=== PATIENT | female | born 1975 | race Caucasian/White ===

== ENCOUNTER 2017-09-26 16:20 | Emergency (ER) | payer MEDICAID, OTHER ==
--- NOTE | 2017-09-26 16:41 | EDM.PDOC ---
ED HPI GENERAL MEDICAL PROBLEM - General Chief Complaint: Chest Pain Stated Complaint: CHEST PAIN AND ARM PAIN Time Seen by Provider: 09/26/17 16:31 Source of Information: Reports: Patient, Family History Limitations: Reports: No Limitations - History of Present Illness INITIAL COMMENTS - FREE TEXT/NARRATIVE: 42 years old w f _smokes, drinks daily- came to the ed due to Left ant chest pain going to her shoulder. Pt has chronic bronchitis as well. Pain is worse when taking a deep breath. No N/V/D dizziness or diaphoresis. Pt has occ a running nose. No other acute medical issues. Denies drug use. BP 164/74 pulse 103 Temp 36.7 Pulse ox 97% on RA Onset Date: 09/26/17 Onset Time: 04:00 Duration: Hour(s):, Intermittent Location: Reports: Chest Quality: Reports: Ache, Burning, Dull Severity: Moderate Improves with: Reports: Rest Worsens with: Reports: Movement Context: Reports: Other (smokes, uses ETOH) Chest Pain Score (Numeric/FACES): 4 - Related Data Allergies Allergy/AdvReac Type Severity Reaction Status Date / Time amoxicillin Allergy Anaphylactic Verified 09/26/17 16:38 Shock clindamycin Allergy Swelling Verified 09/26/17 16:38 Home Meds: Home Meds Divalproex Sodium [Depakote ER] 1,000 mg PO DAILY 09/26/17 [History] hydrOXYzine Pamoate [Vistaril] 200 mg PO DAILY 09/26/17 [History] ED ROS GENERAL - Review of Systems Review Of Systems: See Below Constitutional: Reports: No Symptoms HEENT: Reports: No Symptoms Respiratory: Reports: Pleuritic Chest Pain Cardiovascular: Reports: No Symptoms Endocrine: Reports: No Symptoms GI/Abdominal: Reports: No Symptoms : Reports: No Symptoms Musculoskeletal: Reports: No Symptoms Skin: Reports: No Symptoms Neurological: Reports: No Symptoms Psychiatric: Reports: No Symptoms Hematologic/Lymphatic: Reports: No Symptoms Immunologic: Reports: No Symptoms ED EXAM, GENERAL - Physical Exam Exam: See Below Exam Limited By: No Limitations General Appearance: Alert, WD/WN, Mild Distress Eye Exam: Bilateral Eye: Normal Inspection Ears: Normal External Exam Ear Exam: Bilateral Ear: Auricle Normal Nose: Normal Inspection, No Blood, Nasal Drainage Throat/Mouth: Normal Inspection, Normal Lips, No Airway Compromise Head: Atraumatic, Normocephalic Neck: Normal Inspection, Supple, Non-Tender, Full Range of Motion Respiratory/Chest: No Respiratory Distress, Lungs Clear, Chest Non-Tender, Rhonchi Cardiovascular: Normal Peripheral Pulses, Regular Rate, Rhythm, No Edema, No Gallop Peripheral Pulses: 1+: Radial (L) GI/Abdominal: Normal Bowel Sounds (Female) Exam: Deferred Rectal (Female) Exam: Deferred Back Exam: Normal Inspection, Full Range of Motion Extremities: Normal Inspection, Normal Range of Motion, Non-Tender, No Pedal Edema Neurological: Alert, Oriented, CN II-XII Intact, Normal Cognition, Normal Gait, No Motor/Sensory Deficits Psychiatric: Normal Affect, Normal Mood Skin Exam: Warm, Dry, Intact, Normal Color, No Rash Lymphatic: No Adenopathy EKG INTERPRETATION EKG Date: 09/26/17 Time: 16:30 Rhythm: NSR Rate (Beats/Min): 9 [place]: Normal P-Wave: Present QRS: Normal ST-T: Normal QT: Normal Comparison: NA - No Prior EKG Course - Vital Signs Text/Narrative:: 42 years old w f _smokes, drinks daily- came to the ed due to Left ant chest pain going to her shoulder. Pt has chronic bronchitis as well. Pain is worse when taking a deep breath. No N/V/D dizziness or diaphoresis. Pt has occ a running nose. No other acute medical issues. Denies drug use. BP 164/74 pulse 103 Temp 36.7 Pulse ox 97% on RA PE: Pleuritic C/P, nasal congestion Labs: CBC, BMP, Troponis, Influenza test were neg Impression: Atypical chest pain Tx: Toradol Reexam: Improved Plan: D/C with instructions. Last Recorded V/S: Last Vital Signs Temp 37.2 C 09/26/17 16:31 Pulse 103 H 09/26/17 16:31 Resp 13 09/26/17 16:31 BP 164/74 H 09/26/17 16:31 Pulse Ox 98 09/26/17 16:31 - Orders/Labs/Meds Orders: Active Orders 24 hr Category Date Time Status EKG Documentation Completion [RC] ASDIRECTED Care 09/26/17 16:53 Active EKG Documentation Completion [RC] STAT Care 09/26/17 16:53 Active CXR [Chest 2V] [CR] Stat Exams 09/26/17 16:39 Taken EKG 12 Lead [EK] Routine Ther 09/26/17 16:30 Ordered Labs: Laboratory Tests 09/26/17 09/26/17 09/26/17 Range/Units 16:45 16:45 16:45 WBC 11.6 (4.5-12.0) X10-3/uL RBC 4.19 (3.23-5.20) x10(6)uL Hgb 13.4 (11.5-15.5) g/dL Hct 39.7 (30.0-51.3) % MCV 94.7 (80-96) fL MCH 32.0 (27.7-33.6) pg MCHC 33.8 (32.2-35.4) g/dL RDW 13.2 (11.5-15.5) % Plt Count 381 H (125-369) X10(3)uL MPV 7.8 (7.4-10.4) fL Neut % (Auto) 72.0 (46-82) % Lymph % (Auto) 22.2 (13-37) % [place] % (Auto) 3.5 L (4-12) % Eos % (Auto) 2 (1.0-5.0) % Baso % (Auto) 1 (0-2) % Neut # (Auto) 8.3 (1.6-8.3) # Lymph # (Auto) 2.6 (0.6-5.0) # [place] # (Auto) 0.4 (0.0-1.3) # Eos # (Auto) 0.2 (0.0-0.8) # Baso # (Auto) 0.1 (0.0-0.2) # PT 10.0 (8.7-11.1) INR 0.99 (0.89-1.13) Sodium 139 (135-145) mmol/L Potassium 3.9 (3.5-5.3) mmol/L Chloride 102 (100-110) mmol/L Carbon Dioxide 24 (21-32) mmol/L BUN 10 (7-18) mg/dL Creatinine 0.7 (0.55-1.02) mg/dL Est Cr Clr Drug Dosing 84.84 mL/min Estimated GFR (MDRD) > 60 (>60) BUN/Creatinine Ratio 14.3 (9-20) Glucose 97 (80-116) mg/dL Calcium 8.9 (8.6-10.2) mg/dL Troponin I (<0.017-0.056) ng/mL 09/26/17 Range/Units 16:45 WBC (4.5-12.0) X10-3/uL RBC (3.23-5.20) x10(6)uL Hgb (11.5-15.5) g/dL Hct (30.0-51.3) % MCV (80-96) fL MCH (27.7-33.6) pg MCHC (32.2-35.4) g/dL RDW (11.5-15.5) % Plt Count (125-369) X10(3)uL MPV (7.4-10.4) fL Neut % (Auto) (46-82) % Lymph % (Auto) (13-37) % [place] % (Auto) (4-12) % Eos % (Auto) (1.0-5.0) % Baso % (Auto) (0-2) % Neut # (Auto) (1.6-8.3) # Lymph # (Auto) (0.6-5.0) # [place] # (Auto) (0.0-1.3) # Eos # (Auto) (0.0-0.8) # Baso # (Auto) (0.0-0.2) # PT (8.7-11.1) INR (0.89-1.13) Sodium (135-145) mmol/L Potassium (3.5-5.3) mmol/L Chloride (100-110) mmol/L Carbon Dioxide (21-32) mmol/L BUN (7-18) mg/dL Creatinine (0.55-1.02) mg/dL Est Cr Clr Drug Dosing mL/min Estimated GFR (MDRD) (>60) BUN/Creatinine Ratio (9-20) Glucose (80-116) mg/dL Calcium (8.6-10.2) mg/dL Troponin I < 0.017 L (<0.017-0.056) ng/mL Meds: Medications Discontinued Medications Generic Name Dose Route Start Last Admin Trade Name Freq PRN Reason Stop Dose Admin Ketorolac Tromethamine 60 mg 09/26/17 16:44 09/26/17 17:04 Toradol IM 09/26/17 16:45 60 mg ONETIME ONE Administration Departure - Departure Time of Disposition: 17:21 Disposition: Home, Self-Care 01 Condition: Good Clinical Impression: Atypical chest pain Instructions: Nonspecific Chest Pain, [id number] Referrals: PCP,None [Primary Care Provider] - Forms: ED Department Discharge Additional Instructions: Please quite tobacco and etoh use. Please take motrin for pain, please follow up. Please come back to the ed if your symptoms get worse acutely. - My Orders Last 24 Hours: My Active Orders 09/26/17 16:30 EKG 12 Lead [EK] Routine 09/26/17 16:39 CXR [Chest 2V] [CR] Stat 09/26/17 16:53 EKG Documentation Completion [RC] ASDIRECTED EKG Documentation Completion [RC] STAT - Assessment/Plan Last 24 Hours: My Active Orders 09/26/17 16:30 EKG 12 Lead [EK] Routine 09/26/17 16:39 CXR [Chest 2V] [CR] Stat 09/26/17 16:53 EKG Documentation Completion [RC] ASDIRECTED EKG Documentation Completion [RC] STAT
[2017-09-26] MEDS ORDERED: Ketorolac 60 MG/2 ML SDV IM ONE (16:44)
--- NOTE | 2017-09-28 11:20 | CR ---
INDICATION: Cough, chest pain. CHEST: PA and lateral views of the chest revealed overlying EKG leads. Slightly prominent AP diameter and somewhat flattened diaphragm leaf on the lateral view raises question of obstructive airway disease of mild degree - correlate clinically. There is suggestion of some minimal calcification in the arch of the aorta. The heart is normal in size and shape. Mediastinum and bony thorax were otherwise unremarkable. An active infiltrate or effusion was not identified. IMPRESSION: 1. No acute process. 2. Possible obstructive airway disease - correlate clinically. 3. Question minimal ASD aorta. MTDD
== END 2017-09-26 17:40 | disposition home or self-care (01) ==
LOC: FB.ED 16:20
DX: R07.89 Other chest pain (principal); Z88.1 Allergy status to other antibiotic agents; Z88.8 Allergy status to other drugs, medicaments and biological substances; Z79.899 Other long term (current) drug therapy
CPT/HCPCS: 36415; 71046; 80048; 84484; 85025; 85610; 87804; 93005; 96372; 99284; J1885